=== PATIENT | male | born 1980 | race Hispanic/Latino ===

== ENCOUNTER 2017-10-15 17:01 | Emergency (ER) | payer OTHER ==
--- NOTE | 2017-10-15 17:55 | RAD REPORT ---
EXAM DESCRIPTION: CT - Head Brain Wo Cont - 10/15/2017 5:45 pm CLINICAL HISTORY: Headache COMPARISON: CT May 2010 TECHNIQUE: Axial 5 mm thick images of the head were obtained without IV contrast. All CT scans are performed using dose optimization technique as appropriate and may include automated exposure control or mA/KV adjustment according to patient size. FINDINGS: No intracranial hemorrhage, mass, edema or shift of mid-line structures. No acute infarcti on changes seen. No abnormal extra-axial fluid collections. Ventricles are normal. Mastoid air cells are clear. Mucosal thickening partially fills the left maxillary sinus. No acute bony findings. IMPRESSION: No intracranial abnormality. Mucosal thickening partially fills the left maxillary sinu s.
[2017-10-15 18:32] LABS: Absolute Lymphocytes (CBC) 1.4 K/uL (0.7-4.9); Absolute Monocytes 0.5 K/uL (0.1-1.3); Absolute Neutrophil 3.4 K/uL (1.8-8.0); Basophils % 0.4 % (0-1.3); Eosinophils % 3.7 % (0-4.4); Hematocrit 42.5 % (39.6-49.0); Lymphocytes % 25.3 % (15.3-44.8); MCH 28.6 pg (27.0-35.0); MCV 82.7 fL (80-100); MPV 9.9 fL (7.6-11.3); Monocytes % 8.4 % (3.3-12.3); RBC Red Blood Cell Count 5.14 M/uL (4.33-5.43)
[2017-10-15 18:47] LABS: Potassium 4.1 mEq/L (3.6-5.0)
--- NOTE | 2017-10-15 19:29 | ER ---
Nurse's Notes [facility] Name: Gonzalez Swann Age: 37 yrs Sex: Male : 1980 Arrival Date: 10/15/2017 Time: 17:03 Bed 30 Private MD: Diagnosis: Headache Presentation: 10/15 17:06 Presenting complaint: Patient states: I was at work at about 1600 at a meeting and I la1 was talking about something and had an episode where I kind of "blanked and spaced out" for about 30 seconds. No acute neurological deficits noted. Pt C/O headache,denies CP/SOB. Transition of care: patient was not received from another setting of care. Onset of symptoms was October 15, 2017. Initial Sepsis Screen: Does the patient meet any 2 criteria? No. Patient's initial sepsis screen is negative. Does the patient have a suspected source of infection? No. Patient initial sepsis screen negative. Care prior to arrival: None. 17:06 Method Of Arrival: Ambulatory la1 17:06 Acuity: NILDA 3 la1 Triage Assessment: 17:30 Headache History: The patient has had previous headaches and this one is less severe kr2 than previous episodes. General: Appears in no apparent distress. General: Behavior is calm, cooperative, appropriate for age. Pain:. Pain: Complains of pain in forehead Pain currently is 4 out of 10 on a pain scale. Quality of pain is described as aching, dull, Also complains of no other associated symptoms. Historical: - Allergies: 17:08 No Known Allergies; la1 - PMHx: 17:08 None; la1 - Immunization history:: Adult Immunizations up to date. - Social history:: Smoking status: Patient/guardian denies using tobacco. Screenin:30 Abuse screen: Denies threats or abuse. Denies injuries from another. Nutritional kr2 screening: No deficits noted. Tuberculosis screening: No symptoms or risk factors identified. Fall Risk None identified. Assessment: 17:30 General: Appears in no apparent distress. comfortable, well groomed, well developed, kr2 well nourished, Behavior is calm, cooperative, appropriate for age. Pain: Complains of pain in forehead Pain does not radiate. Pain currently is 4 out of 10 on a pain scale. Quality of pain is described as aching, Pain began suddenly, Is continuous. Neuro: Level of Consciousness is awake, alert, obeys commands, Oriented to person, place, time, situation. Neuro: Reports dizziness. Cardiovascular: Capillary refill < 3 seconds in bilateral fingers Patient's skin is warm and dry. Cardiovascular:. Respiratory: Airway is patent Respiratory effort is even, unlabored, Respiratory pattern is regular, symmetrical, Breath sounds are clear bilaterally. GI: Abdomen is flat, non-distended. : No signs and/or symptoms were reported regarding the genitourinary system. EENT: Oral mucosa is moist. Derm: Skin is intact, is healthy with good turgor, Skin is pink, warm \\T\\ dry. Musculoskeletal: Circulation, motion, and sensation intact. 18:30 Reassessment: Patient appears in no apparent distress at this time. Patient and/or kr2 family updated on plan of care and expected duration. Pain level reassessed. Patient is alert, oriented x 3, equal unlabored respirations, skin warm/dry/pink. Patient denies pain at this time. Patient states feeling better. 19:29 Reassessment: Patient appears in no apparent distress at this time. Patient and/or kr2 family updated on plan of care and expected duration. Pain level reassessed. Patient is alert, oriented x 3, equal unlabored respirations, skin warm/dry/pink. Patient denies pain at this time. Patient states feeling better. Vital Signs: 17:08 BP 135 / 80; Pulse 82; Resp 16; Temp 98.2; Pulse Ox 100% on R/A; Weight 97.52 kg; la1 Height 6 ft. 0 in. (182.88 cm); 18:30 BP 120 / 70; Pulse 68; Resp 15; Pulse Ox 99% on R/A; kr2 19:35 BP 121 / 70; Pulse 64; Resp 16; Pulse Ox 99% on R/A; kr2 17:08 Body Mass Index 29.16 (97.52 kg, 182.88 cm) la1 Visual Acuity: 17:57 Left Eye Visual acuity 20/10, Normal, React To Light; Right Eye Visual acuity 20/10, kr2 Normal, React To Light; Both Eyes Visual acuity 20/10; With Lenses; Comfrey Coma Score: 17:49 Eye Response: spontaneous(4). Verbal Response: oriented(5). Motor Response: obeys kb commands(6). Total: 15. ED Course: 16:15 Inserted saline lock: 20 gauge in left antecubital area, using aseptic technique. Blood kr2 collected. 17:03 Patient arrived in ED. as 17:08 Triage completed. la1 17:08 Arm band placed on left wrist. la1 17:26 [facility] kb 17:26 Bishop Krishna MD is Attending Physician. kb 17:30 Patient has correct armband on for positive identification. Bed in low position. Call kr2 light in reach. Side rails up X2. Pulse ox on. NIBP on. Door closed. Warm blanket given. Head of bed elevated. 17:45 CT Head Brain wo Cont In Process Unspecified. EDMS 17:50 Geovanna Aguiar, RN is Primary Nurse. kr2 19:42 No provider procedures requiring assistance completed. kr2 19:43 IV discontinued, intact, bleeding controlled, No redness/swelling at site. Pressure kr2 dressing applied. Administered Medications: No medications were administered Outcome: 19:29 Discharge ordered by MD. kb 19:43 Discharged to home ambulatory. kr2 19:43 Condition: good 19:43 Discharge instructions given to patient, Instructed on discharge instructions, follow up and referral plans. Demonstrated understanding of instructions, follow-up care. 19:44 Patient left the ED. kr2 Signatures: Dispatcher [employer] EDTN Susie Coley FNP-C FNP-Evelin Barkley Lee RN RN la1 Geovanna Aguiar, RN RN kr2
--- NOTE | 2017-10-15 19:29 | EDPHYS ---
Physician Documentation [facility] Name: Gonzalez Swann Age: 37 yrs Sex: Male : 1980 Arrival Date: 10/15/2017 Time: 17:03 Bed 30 Private MD: ED Physician Bishop Krishna HPI: 10/15 17:49 This 37 yrs old Male presents to ER via Ambulatory with complaints of kb Headache, Blurred Vision. 17:49 The patient complains of pain to the forehead. The patient describes the headache as kb aching. Onset: The symptoms/episode began/occurred today, at 15:00. Associated signs and symptoms: Pertinent positives: blurred vision. Severity of symptoms: At its worst the pain was mild, moderate, in the emergency department the pain has improved, moderately. Headache History: Denies prior headaches. The symptoms are alleviated by nothing. the symptoms are aggravated by nothing. The patient has not experienced similar symptoms in the past. The patient has not recently seen a physician. 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 States someone else answered the question and he felt better, but then had a headache. States he thinks it is from anxiety that he takes klonopin for, but wanted to come get checked just in case. Historical: - Allergies: 17:08 No Known Allergies; la1 - PMHx: 17:08 None; la1 - Immunization history:: Adult Immunizations up to date. - Social history:: Smoking status: Patient/guardian denies using tobacco. ROS: 17:49 Constitutional: Negative for fever, chills, and weight loss, Eyes: Negative for injury, kb pain, redness, and discharge, ENT: Negative for injury, pain, and discharge, Neck: Negative for injury, pain, and swelling, Cardiovascular: Negative for chest pain, palpitations, and edema, Respiratory: Negative for shortness of breath, cough, wheezing, and pleuritic chest pain, Abdomen/GI: Negative for abdominal pain, nausea, vomiting, diarrhea, and constipation, Back: Negative for injury and pain, : Negative for injury, bleeding, discharge, and swelling, MS/Extremity: Negative for injury and deformity, Skin: Negative for injury, rash, and discoloration. 17:49 Neuro: Positive for headache. 17:49 Psych: Positive for anxiety. Exam: 17:49 Constitutional: This is a well developed, well nourished patient who is awake, alert, kb and in no acute distress. Head/Face: Normocephalic, atraumatic. Eyes: Pupils equal round and reactive to light, extra-ocular motions intact. Lids and lashes normal. Conjunctiva and sclera are non-icteric and not injected. Cornea within normal limits. Periorbital areas with no swelling, redness, or edema. ENT: Nares patent. No nasal discharge, no septal abnormalities noted. Tympanic membranes are normal and external auditory canals are clear. Oropharynx with no redness, swelling, or masses, exudates, or evidence of obstruction, uvula midline. Mucous membranes moist. Neck: Trachea midline, no thyromegaly or masses palpated, and no cervical lymphadenopathy. Supple, full range of motion without nuchal rigidity, or vertebral point tenderness. No Meningismus. Chest/axilla: Normal chest wall appearance and motion. Nontender with no deformity. No lesions are appreciated. Cardiovascular: Regular rate and rhythm with a normal S1 and S2. No gallops, murmurs, or rubs. Normal PMI, no JVD. No pulse deficits. Respiratory: Lungs have equal breath sounds bilaterally, clear to auscultation and percussion. No rales, rhonchi or wheezes noted. No increased work of breathing, no retractions or nasal flaring. Abdomen/GI: Soft, non-tender, with normal bowel sounds. No distension or tympany. No guarding or rebound. No evidence of tenderness throughout. Back: No spinal tenderness. No costovertebral tenderness. Full range of motion. Skin: Warm, dry with normal turgor. Normal color with no rashes, no lesions, and no evidence of cellulitis. MS/ Extremity: Pulses equal, no cyanosis. Neurovascular intact. Full, normal range of motion. Neuro: Awake and alert, GCS 15, oriented to person, place, time, and situation. Cranial nerves II-XII grossly intact. Motor strength 5/5 in all extremities. Sensory grossly intact. Cerebellar exam normal. Normal gait. Psych: Awake, alert, with orientation to person, place and time. Behavior, mood, and affect are within normal limits. Vital Signs: 17:08 BP 135 / 80; Pulse 82; Resp 16; Temp 98.2; Pulse Ox 100% on R/A; Weight 97.52 kg; la1 Height 6 ft. 0 in. (182.88 cm); 18:30 BP 120 / 70; Pulse 68; Resp 15; Pulse Ox 99% on R/A; kr2 19:35 BP 121 / 70; Pulse 64; Resp 16; Pulse Ox 99% on R/A; kr2 17:08 Body Mass Index 29.16 (97.52 kg, 182.88 cm) la1 Harbinger Coma Score: 17:49 Eye Response: spontaneous(4). Verbal Response: oriented(5). Motor Response: obeys kb commands(6). Total: 15. Visual Acuity: 17:57 Left Eye Visual acuity 20/10, Normal, React To Light; Right Eye Visual acuity 20/10, kr2 Normal, React To Light; Both Eyes Visual acuity 20/10; With Lenses; MDM: 17:26 Patient medically screened. kb 17:49 Data reviewed: vital signs, nurses notes. Data interpreted: Pulse oximetry: on room air kb is 100 %. Interpretation: normal. 19:06 Counseling: I had a detailed discussion with the patient and/or guardian regarding: the kb historical points, exam findings, and any diagnostic results supporting the discharge/admit diagnosis, lab results, radiology results, the need for outpatient follow up, a family practitioner, to return to the emergency department if symptoms worsen or persist or if there are any questions or concerns that arise at home. 19:29 ED course: Pt states he took his klonopin and his symptoms resolved. . kb 10/15 17:32 Order name: CBC with Diff; Complete Time: 18:40 kb 10/15 17:32 Order name: Basic Metabolic Panel; Complete Time: 18:50 kb 10/15 17:32 Order name: CT Head Brain wo Cont; Complete Time: 18:01 kb 10/15 17:32 Order name: Visual Acuity; Complete Time: 17:59 kb Administered Medications: No medications were administered Disposition: 10/16 07:52 Co-signature as Attending Physician, Bishop Krishna MD Available for consultation at ps1 all times. . Disposition: 10/15/17 19:29 Discharged to Home. Impression: Headache. - Condition is Stable. - Discharge Instructions: Panic Attacks, [id number], General Headache Without Cause, [id number]. - Medication Reconciliation Form, Thank You Letter, Antibiotic Education, Prescription Opioid Use form. - Follow up: Emergency Department; When: As needed; Reason: Worsening of condition. Follow up: Private Physician; When: 2 - 3 days; Reason: Recheck today's complaints, Continuance of care, Re-evaluation by your physician. Signatures: Dispatcher [employer] EDLA Susie Coley, LALIT OLIVIA-Sy Mack RN RN la1 Geovanna Aguiar RN RN kr2 Bishop Krishna MD MD ps1
== END 2017-10-15 19:44 | disposition home or self-care (01) ==
LOC: ER 17:01
DX: R51 Headache (principal)
CPT/HCPCS: 36415; 70450; 80048; 85025; 99284